=== PATIENT | male | born 1950 | race Caucasian/White ===

== ENCOUNTER 2021-12-01 09:35 | Day surgery (SDC) | payer MEDICARE, BC ==
[2021-11-30 09:56] VITALS: BMI 30.7
[~2021-12-01 09:35] MED LIST: LACTATED RINGERS 1,000 ML IV SCH; LIDOCAINE 1% (10MG/ML) FOR IV START INTRADERMA PRN
[2021-12-01 10:41] VITALS: TEMP 97.2
[2021-12-01] MEDS ORDERED: PROPOFOL 10 MG/ML 20 ML VIAL IV ONE (11:01)
--- NOTE | 2021-12-01 11:27 | P.PCN ---
Date of Procedure: 12/01/21 Procedure(s) Performed: BRIEF HISTORY: Patient is a 71-year-old pleasant male scheduled for an elective colonoscopy as a part of evaluation of acute recurrent sigmoid diverticulitis. PROCEDURE PERFORMED: Colonoscopy. PREOPERATIVE DIAGNOSIS: Acute recurrent diverticulitis. IV sedation per Anesthesia. PROCEDURE: After informed consent was obtained, the patient, was brought into the endoscopy unit. IV sedation was administered by Anesthesia under continuous monitoring. Digital rectal examination was normal. Initially the Olympus CF-160 flexible video colonoscope was then inserted in the rectum, gradually advanced into the cecum without any difficulty. Careful examination was performed as the scope was gradually being withdrawn. Ileocecal valve and the appendiceal orifice were visualized and appeared normal. Prep was excellent. Mucosa of the cecum, ascending colon, transverse colon, descending colon, sigmoid colon, and rectum appeared normal.moderate sigmoid diverticulosis. Retroflexion was performed in the rectum and no lesions were seen. The patient tolerated the procedure well. IMPRESSION: Normal-appearing colon from rectum to cecumwith no evidence of colorectal neoplasia . Moderate sigmoid diverticulosis. RECOMMENDATIONS: Findings of this examination were discussed with the patient as well as his family. He was advised to be a high-fiber diet and take fiber supplements a regular basis.recommend repeat screening colonoscopy in 10 years..
[2021-12-01 11:56] VITALS: BP 127/69; PULSE 63; RESP 16
== END 2021-12-01 12:05 | disposition home or self-care (01) ==
LOC: ORWHC2ENDO 09:35
PROVIDERS: ATTEND Internal Medicine Gastroenterology
DX: K57.30 Diverticulosis of large intestine without perforation or abscess without bleeding (principal); Z86.16 Personal history of COVID-19; M19.90 Unspecified osteoarthritis, unspecified site; K21.9 Gastro-esophageal reflux disease without esophagitis; Z96.611 Presence of right artificial shoulder joint; Z98.890 Other specified postprocedural states; Z97.2 Presence of dental prosthetic device (complete) (partial); Z88.6 Allergy status to analgesic agent
CPT/HCPCS: 45378; J2704